=== PATIENT | male | born 1995 | race Caucasian/White ===

== ENCOUNTER 2018-07-26 19:36 | Observation (INO) ==
[2018-07-26 20:12] LABS: Baso % (Auto) 0.4 % (0.0-2.0); Eos # (Auto) 0.1 th/mm3 (0.0-0.4); Eos % (Auto) 0.7 % (0.0-4.0); Hematocrit 40.4 % (39.0-51.0); Hemoglobin 13.8 gm/dL (13.0-17.0); Lymph # (Auto) 2.3 th/mm3 (1.0-4.8); Lymph % (Auto) 28.4 % (9.0-44.0); Mean Corpuscular HGB Conc 34.1 % (32.0-36.0); Mean Corpuscular Hemoglobin 29.9 pg (27.0-34.0); Mean Corpuscular Volume 87.7 fL (80.0-100.0); Mono # (Auto) 0.7 th/mm3 (0.0-0.9); Mono % (Auto) 8.4 % (0.0-8.0); Neut % (Auto) 62.1 % (16.0-70.0); Platelet Count 206 th/mm3 (150-450); Red Cell Distribution Width 12.9 % (11.6-17.2)
--- NOTE | 2018-07-26 20:22 | XR ---
EXAM DATE: 07/26/2018 7:50 PM EDT AGE/SEX: 23 years / Male INDICATIONS: Patient states he passed out. Chest pain. CLINICAL DATA: This is the patient's initial encounter. Patient reports that signs and symptoms have been present for 1 day and indicates a pain score of 0/10. MEDICAL/SURGICAL HISTORY: None. None. COMPARISON: No prior exams available for comparison. FINDINGS: Single AP view of the chest. The lungs are clear. Cardiomediastinal silhouette within nor mal limits. No evidence of pleural effusion or pneumothorax. CONCLUSION: No acute cardiopulmonary disease identified. Electronically signed by: Jayce Burgess MD 07/26/2018 8:20 PM EDT
--- NOTE | 2018-07-26 20:25 | ED ---
HPI General Chief Complaint: Syncope Stated Complaint: Chest pain Time Seen by Provider: 07/26/18 19:49 History of Present Illness HPI narrative: Patient is a 23-year-old male who was standing waiting for his sister to finish a dance class with his mother they were going to go out to eat his father was waiting in the car apparently the patient said he suddenly realized he was lightheaded dizzy he thought he might pass out and the next thing he knew he was lying on the floor his mother was holding him but he had syncopized apparently paramedics found him lying on the floor his heart rate was mildly bradycardia at that time they tried to stand him up he suddenly became ashen pale heart rate dropped to 35 on their monitor and his blood pressure systolic was only 98 and again felt syncopized and he was laid back on the floor where his mentation and increased rapidly transferred by paramedics he arrives here his heart rate is 59 and the base EKG normal sinus rhythm and his blood pressure is 129 systolic at this time he has no past medical history no cardiac history no family of cardiac history he denies any drug intoxication that could affecting his cardiac conduction he is given 750 normal saline bolus in route by the paramedics and they gave him 0.5 mg of atropine did increase his heart rate from the 34-70 on arrival his heart rate is in the 60s he is symptom-free at this time mildly pale denies any trauma he ate this morning fingerstick en route was normal Related Data Home Medications Medication Instructions Recorded Confirmed No Known Home Medications 07/26/18 07/26/18 Allergies Allergy/AdvReac Type Severity Reaction Status Date / Time No Known Allergies Allergy Uncoded 02/28/15 16:02 Review of Systems ROS: all other systems reviewed are negative Cardiovascular Reports syncope, Reports irregular heart rhythm and Reports slow heart rate [facility] Medical History Medical History Patient denies medical problems (Acute) Surgical History Surgical History No history of previous surgery (Acute) Social History Social History Substance History: No History of Abuse Second Hand Smoke Exposure: No Smoking Status: Never smoker How Often Do You Have a Drink Containing Alcohol: Never Recent Travel in [facility] within the Last 8 Weeks: No Recent Out of Country Travel within the Last 8 Weeks: No Immunization History Tetanus Immunization: >5 Years Exam Narrative Exam Narrative: GENERAL: pale awake alert orthostatc vitals are normal SKIN: Warm and dry. HEAD: Atraumatic. Normocephalic. EYES: Pupils equal and round. No scleral icterus. No injection or drainage. ENT: No nasal bleeding or discharge. Mucous membranes pink and moist. NECK: Trachea midline. No JVD. CARDIOVASCULAR: Regular rate and rhythm. HR 59 on EKG RESPIRATORY: No accessory muscle use. Clear to auscultation. Breath sounds equal bilaterally. GASTROINTESTINAL: Abdomen soft, non-tender, nondistended. Hepatic and splenic margins not palpable. MUSCULOSKELETAL: Extremities without clubbing, cyanosis, or edema. No obvious deformities. NEUROLOGICAL: Awake and alert. No obvious cranial nerve deficits. Motor grossly within normal limits. Five out of 5 muscle strength in the arms and legs. Normal speech. PSYCHIATRIC: Appropriate mood and affect; insight and judgment normal. Course Initial Documented Vital Signs Temperature 98.6 F 07/26/18 19:41 Pulse Rate 55 L 07/26/18 19:41 Respiratory Rate 12 07/26/18 19:41 Blood Pressure 135/65 07/26/18 19:41 Pulse Oximetry 100 07/26/18 19:41 Last Documented Vital Signs Temperature 98.6 F 07/26/18 19:41 Pulse Rate 56 L 07/27/18 02:06 Respiratory Rate 13 07/27/18 02:06 Blood Pressure 119/67 07/27/18 02:06 Pulse Oximetry 100 07/27/18 02:06 Medical Decision Making [facility] Narrative Medical decision making narrative: She arrives after having received 750 cc of normal saline and atropine 0.5 mg in route by the time he arrived his heart rate is normal his blood pressure is normal his initial EKG is normal sinus at 59 bpm his systolic blood pressure is 120 he is observed in the ER and has calcium levels that are 8.0 the bottom of normal is 8.5 I give him PhosLo which is 6 6 7 mg of the calcium after about 10 minutes he vomited excessively after having taken that pill. He is given 2 L of fluid he is given Zofran however after short period of time he has another episode where he becomes bradycardic patient is given Reglan and another liter of fluid and he still is having episodes of vomiting another liter fluid and 0.5 mg Ativan is given he sleeps he wakes up he continues to vomit he will be admitted for further evaluation x- ray is done of his abdomen there is no signs of obstruction and all of his electrolytes except for the calcium are normal troponin x2 was normal he is admitted for syncope and bradycardia for further workup with cardiac consult in the a.m. Medical Screen Exam Complete: Yes Emergency Medical Condition: Yes Differential Diagnosis Differential Diagnosis: Differential diagnosis includes bradycardia due to vagal stimulation versus chemical intoxication with unknown substance versus sick sinus syndrome versus beta-westley like medication versus anxiety vasovagal causing the bradycardia hypotension Lab Data Result diagrams: 07/26/18 19:58 07/26/18 19:58 Lab Results 07/26/18 07/26/18 07/27/18 Range/Units 19:58 19:58 00:10 WBC 8.0 (4.0-11.0) th/mm3 RBC 4.60 (4.50-5.90) mil/mm3 Hgb 13.8 (13.0-17.0) gm/dL Hct 40.4 (39.0-51.0) % MCV 87.7 (80.0-100.0) fL MCH 29.9 (27.0-34.0) pg MCHC 34.1 (32.0-36.0) % RDW 12.9 (11.6-17.2) % Plt Count 206 (150-450) th/mm3 MPV 8.0 (7.0-11.0) fL Neut % (Auto) 62.1 (16.0-70.0) % Lymph % (Auto) 28.4 (9.0-44.0) % Carson % (Auto) 8.4 H (0.0-8.0) % Eos % (Auto) 0.7 (0.0-4.0) % Baso % (Auto) 0.4 (0.0-2.0) % Neut # (Auto) 5.0 (1.8-7.7) th/mm3 Lymph # (Auto) 2.3 (1.0-4.8) th/mm3 Carson # (Auto) 0.7 (0.0-0.9) th/mm3 Eos # (Auto) 0.1 (0.0-0.4) th/mm3 Baso # (Auto) 0.0 (0.0-0.2) th/mm3 WBC Differential . Differential Comment Auto diff final Sodium 142 (136-145) meq/L Potassium 3.8 (3.5-5.1) meq/L Chloride 109 H (98-107) meq/L Carbon Dioxide 28.3 (21.0-32.0) meq/L Anion Gap 5 (5-15) meq/L BUN 13 (7-18) mg/dL Creatinine 0.90 (0.60-1.30) mg/dL Estimated GFR Greater than 89 (>89) mL/min Random Glucose 90 (74-106) mg/dL Calcium 8.0 L (8.5-10.1) mg/dL Total Bilirubin 0.2 (0.2-1.0) mg/dL AST 16 (15-37) U/L ALT 25 (12-78) U/L Alkaline Phosphatase 64 (45-117) U/L Total Creatine Kinase 96 (39-308) U/L Troponin I Less than 0.02 L Less than 0.02 L (0.02-0.05) ng/mL Total Protein 7.1 (6.4-8.2) g/dL Albumin 3.7 (3.4-5.0) g/dL Imaging Data Radiologist's impression: Chest X-Ray 07/26/18 19:50 CONCLUSION: No acute cardiopulmonary disease identified. Abdomen X-Ray 07/27/18 00:50 CONCLUSION: Negative examination. Discharge Plan Discharge Disposition Patient Disposition: 30 Still Patient Discharge Details Diagnosis: Bradycardia, Syncope Physicians Team ED Provider: Fish Ferraro Primary Care Provider: UNKNOWN, Attending Provider: Melody Harrington Other Providers: Luis Juarez Status ED Status: Admitted Observation Patient
[2018-07-26 20:40] LABS: Albumin 3.7 g/dL (3.4-5.0); Anion Gap 5 meq/L (5-15); Aspartate Aminotransferase 16 U/L (15-37); Blood Urea Nitrogen 13 mg/dL (7-18); Carbon Dioxide 28.3 meq/L (21.0-32.0); Chloride 109 meq/L (98-107); Glomerular Filtration Rate Greater Than 89 mL/min (>89); Glucose,Random 90 mg/dL (74-106); Potassium 3.8 meq/L (3.5-5.1); Sodium 142 meq/L (136-145)
[2018-07-26 20:41] LABS: Alanine Aminotransferase 25 U/L (12-78)
[2018-07-26 20:45] LABS: Alkaline Phosphatase 64 U/L (45-117); Total Protein 7.1 g/dL (6.4-8.2)
[2018-07-26] MEDS ORDERED: Calcium Acetate 667 MG Capsule PO ONE (20:47)
[2018-07-26] MEDS ORDERED: Sod Chloride 0.9% Inj 1,000 ML IV.SIG ONE ×2 (20:48→23:05)
[2018-07-26 20:52] LABS: Creatine Kinase 96 U/L (39-308)
[2018-07-26] MEDS ORDERED: Ketorolac Inj 30 MG/ML (IVP) Vial IV.PUSH ONE (23:02)
[2018-07-26] MEDS ORDERED: Metoclopramide Inj 10 MG in Sodium Chlor 0.9% Inj 50 ML IV.SIG ONE (23:04)
--- NOTE | 2018-07-27 01:30 | XR ---
EXAM DATE: 07/27/2018 12:50 AM EDT AGE/SEX: 23 years / Male INDICATIONS: Vomiting after ingesting calcium pill in the emergency room today. CLINICAL DATA: This is the patient's subsequent encounter. Patient reports that signs and symptoms h ave been present for 1 day and indicates a pain score of 0/10. MEDICAL/SURGICAL HISTORY: None. None. COMPARISON: No prior exams available for comparison. FINDINGS: Supine and upright views of the abdomen were performed. The abdominal bowel gas pattern is normal. No air-fluid levels are seen. No abnormal masses, calcifications, or organomegaly is seen. The visualiz ed lower lungs are clear. No evidence of free intraperitoneal gas. The osseous structures are unremar kable. CONCLUSION: Negative examination. Electronically signed by: Merrick Meléndez MD 07/27/2018 1:29 AM EDT
[2018-07-27] MEDS ORDERED: Bisacodyl 10 MG Supp RECTAL PRN (02:06)
[2018-07-27] MEDS ORDERED: Acetaminophen 325 MG Tablet PO PRN (02:06)
[2018-07-27] MEDS ORDERED: Sod Chloride 0.9% Inj 1,000 ML IV.SIG ONE (02:08)
--- NOTE | 2018-07-27 02:26 | P.HPIM ---
History of Present Illness Primary Care Physician: UNKNOWN History of Present Illness: This is a 23-year-old male with no significant PMH who is brought to the ER by EMS after syncopal episode. Pt was apparently waiting outside his sister's dance class with his mother when he had acute onset of dizziness/ lightheadedness followed by syncopal event, pt's Mother was able to catch him and guide him to the floor, no head trauma reported. Upon EMS arrival, pt stood up and had recurrent syncopal event, HR noted to be in the 30's, s/p Atropine 0.5mg by EMS w/ improvement. Denies fever, chills, chest pain or sick contacts. No h/o bradycardia or syncope in the past. While in ER, pt given Ca PO replacement and has had intractable nausea/vomiting since w/ recurrent episode of bradycardia to 40's, now resolved. Pt is awake, alert and oriented. BP 135/65, HR 55, O2 sat 100% on RA, Afebrile. CBC unremarkable. Chemistry essentially unremarkable. Troponin negative x2. CXR and Abd-Xray w/ no acute findings. - Diagnosis (1) Syncope (2) Bradycardia (3) Intractable nausea and vomiting Review of Systems PAST FAMILY HISTORY: Reviewed. No h/o DM or CAD All other systems reviewed negative except as stated in HPI [facility] - History History Provided By: [employer] / EMT - Medical History Medical History: Medical History (Last Updated 07/26/18 @ 19:47 by Nilton Marie) Patient denies medical problems - Surgical History Surgical History: Surgical History (Last Updated 07/26/18 @ 19:47 by Nilton Marie) No history of previous surgery - Tobacco History Second Hand Smoke Exposure: No Smoking Status: Never smoker - Alcohol History How Often Do You Have a Drink Containing Alcohol: Never - Substance Use History Substance History: No History of Abuse - Travel History Recent Travel in the [place] Within the Last 8 Weeks: No Recent Travel Out of the Country Within the Last 8 Weeks: No - Immunization History Tetanus Immunization: >5 Years Medications and Allergies Active Medications: Active Medications Acetaminophen (Tylenol) 650 mg PO Q4H PRN PRN Reason: Temp > 100.4 Al Hydroxide/Mg Hydroxide (Milk Of Magnesia Liq) 30 ml PO Q12H PRN PRN Reason: Mild Constipation Bisacodyl (Dulcolax Supp) 10 mg RECTAL DAILY PRN PRN Reason: SEVERE CONSITIPATION Sodium Chloride (Ns Inj) 1,000 mls @ 100 mls/hr IV.CONT .Q10H JB Lactulose (Lactulose Liq) 30 ml PO DAILY PRN PRN Reason: SEVERE CONSITIPATION Ondansetron HCl (Zofran Inj) 4 mg IV.PUSH Q6H PRN PRN Reason: NAUSEA OR VOMITING Senna/Docusate Sodium (Vianey-Colace) 1 tab PO BID JB Sennosides (Senokot) 17.2 mg PO Q12H PRN PRN Reason: Moderate Constipation Sodium Chloride (Ns Flush) 2 ml IV.FLUSH UNSCH PRN PRN Reason: FLUSH AFTER USING IV ACCESS Allergies Allergy/AdvReac Type Severity Reaction Status Date / Time No Known Allergies Allergy Uncoded 02/28/15 16:02 Home Medications Medication Instructions Recorded Confirmed Type No Known Home Medications 07/26/18 07/26/18 History Exam Vital signs: Vital Signs 07/26/18 19:41 07/26/18 20:00 07/26/18 20:59 Temperature 98.6 F Pulse Rate 55 L 56 L Respiratory Rate 12 13 Blood Pressure 135/65 110/65 Pulse Oximetry 100 100 99 07/26/18 21:00 07/26/18 22:00 07/27/18 00:36 Temperature Pulse Rate 54 L 56 L Respiratory Rate 12 15 15 Blood Pressure 114/69 115/56 L Pulse Oximetry 100 100 07/27/18 02:06 Temperature Pulse Rate 56 L Respiratory Rate 13 Blood Pressure 119/67 Pulse Oximetry 100 Intake & Output 07/26/18 07/26/18 07/27/18 06:59 18:59 06:59 Intake Total 2051 Balance 2051 Weight 65.771 kg Intake: IV 2051 Reglan Inj 10 MG In NS Inj 50 52 / 52 ML @ 104 mls/hr IV.SIG ONCE ONE Rx#:[id number] NS Inj 1,000 ML @ Wide Open IV. 1999 SIG BOLUS ONE Rx#:[id number] Narrative: PE: GENERAL: Pleasant young white male in no acute distress. Mother at bedside. SKIN: Focused skin assessment warm and dry. HEENT: PERRLA, EOMI. No scleral icterus or conjunctival pallor. No lid lag or facial droop. CARDIOVASCULAR: Bradycardia, HR 50s. No obvious murmurs to auscultation. No chest tenderness to palpation. RESPIRATORY: No obvious rhonchi or wheezing. Clear to auscultation. Breath sounds equal bilaterally. GASTROINTESTINAL: Abdomen soft, non-tender, nondistended. BS normal. MUSCULOSKELETAL: Extremities without clubbing, cyanosis, or edema. No obvious deformities. NEUROLOGICAL: Awake, alert and oriented x4. No focal neurologic deficits. Moving both upper and lower extremities spontaneously. PSYCHIATRIC: Appropriate mood and affect. Insight and judgment normal. Results - Labs CBC & Chem 7: 07/26/18 19:58 07/26/18 19:58 Labs: Short CBC 07/26/18 Range/Units 19:58 WBC 8.0 (4.0-11.0) th/mm3 Hgb 13.8 (13.0-17.0) gm/dL Hct 40.4 (39.0-51.0) % Plt Count 206 (150-450) th/mm3 BMP 07/26/18 19:58 Sodium 142 Potassium 3.8 Chloride 109 H Carbon Dioxide 28.3 BUN 13 Creatinine 0.90 Calcium 8.0 L Cardiac Enzymes 07/26/18 07/27/18 Range/Units 19:58 00:10 Total Creatine Kinase 96 (39-308) U/L Troponin I Less than 0.02 L Less than 0.02 L (0.02-0.05) ng/mL Liver Function 07/26/18 Range/Units 19:58 Total Bilirubin 0.2 (0.2-1.0) mg/dL AST 16 (15-37) U/L ALT 25 (12-78) U/L Alkaline Phosphatase 64 (45-117) U/L Albumin 3.7 (3.4-5.0) g/dL - Imaging Impressions Chest X-Ray 07/26/18 19:50 CONCLUSION: No acute cardiopulmonary disease identified. Abdomen X-Ray 07/27/18 00:50 CONCLUSION: Negative examination. Caprini VTE Risk Assessment Caprini VTE Risk Assessment: No/Low Risk (score <= 1) Caprini Risk Assessment Model: Point Value = 1 Point Value = 2 Point Value = 3 Point Value = 5 Age 41-60 Minor surgery BMI > 25 kg/m2 Swollen legs Varicose veins or History of unexplained or recurrent spontaneous Oral contraceptives or hormone replacement Sepsis (< 1 month) Serious lung disease, including pneumonia (< 1 month) Abnormal pulmonary function Acute myocardial infarction Congestive heart failure (< 1 month) History of inflammatory bowel disease Medical patient at bed rest Age 61-74 Arthroscopic surgery Major open surgery (> 45 min) Laparoscopic surgery (> 45 min) Malignancy Confined to bed (> 72 hours) Immobilizing plaster cast Central venous access Age >= 75 History of VTE Family history of VTE Factor V Leiden Prothrombin [id number] Lupus anticoagulant Anticardiolipin antibodies Elevated serum homocysteine Heparin-induced thrombocytopenia Other congenital or acquired thrombophilia Stroke (< 1 month) Elective arthroplasty Hip, pelvis, or leg fracture Acute spinal cord injury (< 1 month) Prophylaxis Regimen: Total Risk Factor Score Risk Level Prophylaxis Regimen 0-1 Low Early ambulation 2 Moderate Order ONE of the following: *Sequential Compression Device (SCD) *Heparin 5000 units SQ BID 3-4 Higher Order ONE of the following medications: *Heparin 5000 units SQ TID *Enoxaparin/Lovenox 40 mg SQ daily (WT < 150 kg, CrCl > 30 mL/min) *Enoxaparin/Lovenox 30 mg SQ daily (WT < 150 kg, CrCl > 10-29 mL/min) *Enoxaparin/Lovenox 30 mg SQ BID (WT < 150 kg, CrCl > 30 mL/min) AND/OR *Sequential Compression Device (SCD) 5 or more Highest Order ONE of the following medications: *Heparin 5000 units SQ TID (Preferred with Epidurals) *Enoxaparin/Lovenox 40 mg SQ daily (WT < 150 kg, CrCl > 30 mL/min) *Enoxaparin/Lovenox 30 mg SQ daily (WT < 150 kg, CrCl > 10-29 mL/min) *Enoxaparin/Lovenox 30 mg SQ BID (WT < 150 kg, CrCl > 30 mL/min) AND *Sequential Compression Device (SCD) Assessment and Plan - Assessment (1) Syncope Code(s): R55 - Syncope and collapse Status: Acute (2) Bradycardia Code(s): R00.1 - Bradycardia, unspecified Status: Acute (3) Intractable nausea and vomiting Code(s): R11.2 - Nausea with vomiting, unspecified Status: Acute - Plan A/P: 1. Syncope: acute episode dizziness/lightheadedness followed by syncopal event x2, +bradycardia, no h/o similar symptoms. Admit for observation, telemetry, check Echo to eval for valvular abnormality/outlet obstruction. 2. Bradycardia: symptomatic. HR 30's per EMS, s/p Atropine 0.5mg w/ improvement, episode of bradycardia to 40's while in ER, now 50's. Telemetry, Check Echo as above, consult Cardiology for further eval/intervention. 3. Intractable NV: after receiving Ca PO in ER for replacement, continue antiemetics as needed, IVF for hydration. 4. DVT Prophylaxis: SCD/Teds 5. Social work for d/c planning as needed. 6. Case discussed w/ ER physician at length, labs/records/imaging reviewed by me.
[2018-07-27] MEDS: Sod Chloride 0.9% Inj 1,000 ML IV.CONT SCH ×2 (02:52→13:50)
[2018-07-27 06:45] LABS: Albumin 3.2 g/dL (3.4-5.0); Anion Gap 6 meq/L (5-15); Aspartate Aminotransferase 16 U/L (15-37); Blood Urea Nitrogen 12 mg/dL (7-18); Calcium 8.2 mg/dL (8.5-10.1); Carbon Dioxide 23.8 meq/L (21.0-32.0); Chloride 112 meq/L (98-107); Glomerular Filtration Rate Greater Than 89 mL/min (>89); Glucose,Random 103 mg/dL (74-106); Potassium 3.7 meq/L (3.5-5.1); Sodium 142 meq/L (136-145)
[2018-07-27 06:46] LABS: Alanine Aminotransferase 25 U/L (12-78)
[2018-07-27 06:50] LABS: Alkaline Phosphatase 60 U/L (45-117); Total Protein 6.2 g/dL (6.4-8.2)
[2018-07-27 07:59] LABS: Baso % (Auto) 0.1 % (0.0-2.0); Eos % (Auto) 0.1 % (0.0-4.0); Hematocrit 38.5 % (39.0-51.0); Hemoglobin 13.6 gm/dL (13.0-17.0); Lymph # (Auto) 0.3 th/mm3 (1.0-4.8); Lymph % (Auto) 2.7 % (9.0-44.0); Mean Corpuscular HGB Conc 35.3 % (32.0-36.0); Mean Corpuscular Hemoglobin 30.6 pg (27.0-34.0); Mean Corpuscular Volume 86.8 fL (80.0-100.0); Mean Platelet Volume 8.2 fL (7.0-11.0); Mono # (Auto) 0.4 th/mm3 (0.0-0.9); Mono % (Auto) 4.2 % (0.0-8.0); Neut # (Auto) 9.3 th/mm3 (1.8-7.7); Neut % (Auto) 92.9 % (16.0-70.0); Platelet Count 206 th/mm3 (150-450); Red Blood Count 4.44 mil/mm3 (4.50-5.90); Red Cell Distribution Width 13.1 % (11.6-17.2); White Blood Count 10.1 th/mm3 (4.0-11.0)
[2018-07-27] MEDS: Senna/Docusate Sodium 8.6/50 MG Tablet PO SCH ×2 (09:47→20:25)
--- NOTE | 2018-07-27 12:13 | P.PN ---
Subjective Interval history: Pt seen and examined for f/u of syncope and bradycardia. Patient's mother and girlfriend at the bedside. Patient is drowsy and sleeping throughout most of the encounter which he attributes to not getting a lot of rest yesterday. No further episodes of syncope since he has been in the hospital. Per patient's mother, he has always been healthy. He used to follow with Dr. Villarreal in the [facility] but hasn't been seen in several years. There is no recall of whether or not his resting heart rate is low. He is not particularly active or athletic but yesterday he did buy [employer] sneakers and started jogging/walking yesterday afternoon with his girlfriend. He states he rehydrated and ate afterwards and doesn't feel like he was dehydrated. He states he doesn't felt like he overexerted himself either. The syncopal episodes were reportedly at least 5 hours later. Echo hasn't been done yet and cardiology consult is pending. He denies any chest pain, palpitations, abdominal pain. He has had two episodes of vomiting since being in the hospital, last time was this morning. He states he feels lightheaded. His mother denies a family history of sudden cardiac or conduction disorders. Physical Exam Vital signs: Vital Signs 07/26/18 19:41 07/26/18 20:00 07/26/18 20:59 Temperature 98.6 F Pulse Rate 55 L 56 L Respiratory Rate 12 13 Blood Pressure 135/65 110/65 Pulse Oximetry 100 100 99 07/26/18 21:00 07/26/18 22:00 07/27/18 00:36 Temperature Pulse Rate 54 L 56 L Respiratory Rate 12 15 15 Blood Pressure 114/69 115/56 L Pulse Oximetry 100 100 07/27/18 02:06 07/27/18 05:58 07/27/18 07:20 Temperature Pulse Rate 56 L 62 Respiratory Rate 13 16 16 Blood Pressure 119/67 114/57 L Pulse Oximetry 100 96 07/27/18 07:21 07/27/18 08:00 Temperature 99.0 F Pulse Rate 73 Respiratory Rate 16 16 Blood Pressure 126/71 Pulse Oximetry 98 Intake & Output 07/26/18 07/27/18 07/27/18 18:59 06:59 18:59 Intake Total 3052 / 3052 Output Total 200 / 200 Balance 3051 -200 / -200 Weight 65.771 kg Intake: IV 3051 Reglan Inj 10 MG In NS Inj 50 52 / 52 ML @ 104 mls/hr IV.SIG ONCE ONE Rx#:[id number] NS Inj 1,000 ML @ Wide Open IV. 3000 / 3000 SIG BOLUS ONE Rx#:[id number] Output: Emesis 200 / 200 Other: Date of Last Bowel Movement 07/27/18 # Bowel Movements 1 # Emeses 1 Narrative: GENERAL: WN, WD male resting in bed in NAD. SKIN: Warm and dry. HEENT: AT/NC. Pupils equal and round. MMM. NECK: Supple no tender LAD or JVD. HEART: RRR no m/r/g. LUNGS: CTAB without wheezes or crackles. ABDOMEN: +BS, soft, NT, ND. EXTREMITIES: No LE edema. 2+ pedal pulses. NEURO: Drowsy but arousable. Results - Labs CBC & Chem 7: 07/27/18 05:30 07/27/18 06:10 Laboratory Results - last 24 hr 07/26/18 07/26/18 07/27/18 19:58 19:58 00:10 WBC 8.0 RBC 4.60 Hgb 13.8 Hct 40.4 MCV 87.7 MCH 29.9 MCHC 34.1 RDW 12.9 Plt Count 206 MPV 8.0 Neut % (Auto) 62.1 Lymph % (Auto) 28.4 Bell % (Auto) 8.4 H Eos % (Auto) 0.7 Baso % (Auto) 0.4 Neut # (Auto) 5.0 Lymph # (Auto) 2.3 Bell # (Auto) 0.7 Eos # (Auto) 0.1 Baso # (Auto) 0.0 WBC Differential . Differential Comment Auto diff final Sodium 142 Potassium 3.8 Chloride 109 H Carbon Dioxide 28.3 Anion Gap 5 BUN 13 Creatinine 0.90 Estimated GFR Greater than 89 Random Glucose 90 Calcium 8.0 L Total Bilirubin 0.2 AST 16 ALT 25 Alkaline Phosphatase 64 Total Creatine Kinase 96 Troponin I Less than 0.02 L Less than 0.02 L Total Protein 7.1 Albumin 3.7 07/27/18 07/27/18 05:30 06:10 WBC 10.1 RBC 4.44 L Hgb 13.6 Hct 38.5 L MCV 86.8 MCH 30.6 MCHC 35.3 RDW 13.1 Plt Count 206 MPV 8.2 Neut % (Auto) 92.9 H Lymph % (Auto) 2.7 L Bell % (Auto) 4.2 Eos % (Auto) 0.1 Baso % (Auto) 0.1 Neut # (Auto) 9.3 H Lymph # (Auto) 0.3 L Bell # (Auto) 0.4 Eos # (Auto) 0.0 Baso # (Auto) 0.0 WBC Differential . Differential Comment Auto diff final Sodium 142 Potassium 3.7 Chloride 112 H Carbon Dioxide 23.8 Anion Gap 6 BUN 12 Creatinine 0.81 Estimated GFR Greater than 89 Random Glucose 103 Calcium 8.2 L Total Bilirubin 0.5 AST 16 ALT 25 Alkaline Phosphatase 60 Total Creatine Kinase Troponin I Less than 0.02 L Total Protein 6.2 L D Albumin 3.2 L - Imaging Impressions Chest X-Ray 07/26/18 19:50 CONCLUSION: No acute cardiopulmonary disease identified. Abdomen X-Ray 07/27/18 00:50 CONCLUSION: Negative examination. Assessment and Plan - Assessment (1) Syncope Code(s): R55 - Syncope and collapse Status: Acute (2) Bradycardia Code(s): R00.1 - Bradycardia, unspecified Status: Acute (3) Intractable nausea and vomiting Code(s): R11.2 - Nausea with vomiting, unspecified Status: Acute - Plan 23 YOWM with no significant PMH admitted overnight for evaluation of syncope x 2. 1. Syncope - Exam seems consistent with orthostatic or vasovagal given prodrome and occurring when patient was either standing for some time or when he got up to stand - HR in the 30s per EMS requiring atropine - EKG showing possible RV conduction delay. QTc normal. No family history of conduction disorders - Orthostatics not yet documented but reported by nursing that HR went from 70s supine to 110s standing - 2D echo ordered - Continue IV fluids - Cardiology consulted 2. Bradycardia - HR improved, in the 70s during my exam - Possibly normal given his young age - Will see what cardiology says in the setting of syncope - Monitor on telemetry - Echo pending DVT prophylaxis: low risk and ambulatory
--- NOTE | 2018-07-27 16:00 | ECG ---
Date Performed: 07/26/2018 Time Performed: 19:44:16 PTAGE: 23 years EKG: SINUS BRADYCARDIA POSSIBLE RIGHT VENTRICULAR CONDUCTION DELAY BORDERLINE ECG NO PREVIOUS TRACING DOCTOR: Zain Bailey Interpretating Date/Time 07/27/2018 15:58:04
--- NOTE | 2018-07-27 16:00 | ECG ---
Date Performed: 07/27/2018 Time Performed: 06:04:45 PTAGE: 23 years EKG: Sinus rhythm RIGHT VENTRICULAR CONDUCTION DELAY ANTERIOR T WAVE CHANGE IN LEADS V1-V3, WHICH MAY BE NORMAL FOR AG E Compared to previous tracing, heart rate has increased from 47 to 70. T-wave change anteriorly slig htly more prominent, which may be heart rate related. Otherwise, no significant change. ABNORMAL ECG PREVIOUS TRACING : 07/27/2018 01.26 DOCTOR: Zain Bailey Interpretating Date/Time 07/27/2018 15:59:27
--- NOTE | 2018-07-27 16:00 | ECG ---
Date Performed: 07/27/2018 Time Performed: 01:26:41 PTAGE: 23 years EKG: SINUS BRADYCARDIA POSSIBLE RIGHT VENTRICULAR CONDUCTION DELAY BORDERLINE ECG Since PREVIOUS TRACING , no significant change noted PREVIOUS TRACIN07/26/2018 19.44 DOCTOR: Zain Bailey Interpretating Date/Time 07/27/2018 15:58:15
--- NOTE | 2018-07-27 20:02 | MB ---
cc: Luis Juarez DO DATE: 07/27/2018 REASON FOR CONSULTATION: Syncopal episode. HISTORY OF PRESENT ILLNESS: Manas Kim is a pleasant 23-year-old male who presented to [facility] Emergency Room after a syncopal episode. He had a normal day and had just recently bought running shoes and so he did a jog/walk with his girlfriend, which is the first time he had done anything like this in the recent past. Afterwards, he ate and drank and felt like he had resuscitated his fluids. He was waiting outside his sister's dance class with his mother when he had an acute onset of dizziness, lightheadedness and a feeling of blacking out. He blacked out and his mother was able to catch him and got him to the floor. Apparently, the mother and a person nearby who is a nurse said that by the time he was at the ground, he was already waking up and able to talk to them. There was no postictal phase. He denies chest pain, shortness of breath or palpitations before, during or after the event. Upon EMS arrival, the patient stood up and had a recurrent syncopal event. Heart rate was in 30s at the time and atropine was given. Heart rate has been mostly in the 50s to 60s, although he was given a calcium pill and afterwards had intractable nausea and vomiting, which led to bradycardia in the 40s. In seeing him, he is currently hemodynamically stable without chest pain or shortness of breath. PAST MEDICAL HISTORY: Denies. PAST SURGICAL HISTORY: Denies. ALLERGIES: NO KNOWN DRUG ALLERGIES. MEDICATIONS: Denies. FAMILY HISTORY: The family denies a history of syncope or sudden cardiac within the family. SOCIAL HISTORY: Denies tobacco, alcohol or drug abuse. REVIEW OF SYSTEMS: Fourteen systems were reviewed including osteopathic. Pertinent positives and negatives above, otherwise negative. PHYSICAL EXAMINATION: VITAL SIGNS: Temperature 98.8, heart rate 84, blood pressure 121/56, respirations 16, pulse oximetry 99% on room air. GENERAL: The patient appears well, in no acute distress, alert, awake and oriented x 3. HEENT: Extraocular muscles intact. Mucous membranes moist. NECK: Supple. No JVD at 45 degrees. No carotid bruits heard bilaterally. Carotid upstroke is brisk in nature. HEART: Regular rate and rhythm. Positive first and second heart sounds with no noted murmurs, gallops or rubs. LUNGS: Clear to auscultation bilaterally. No wheezes, rales or rhonchi. ABDOMEN: Soft, nontender, nondistended. No organomegaly noted. EXTREMITIES: Show no clubbing, cyanosis or edema. Femoral and distal pulses intact bilaterally. NEUROLOGIC: No focal deficits. SKIN: Warm, dry and intact. OSTEOPATHIC: No kyphoscoliosis, lordosis or paraspinal tender points. LABORATORY DATA: Hemoglobin 13.6, hematocrit 38.5, platelets 206. Potassium 3.7, BUN 12, creatinine 0.81. Troponin negative x 3. Electrocardiogram (07/27/2018 at 0604 hours), sinus rhythm, incomplete right bundle branch block, ST-T wave changes anteriorly, most likely due to right bundle branch pattern. IMPRESSION: 1. Syncopal episode. 2. Orthostatic hypotension. 3. Bradycardia post vasovagal from nausea and vomiting. RECOMMENDATIONS: 1. Mr. Kim presented after a syncopal episode. His original episode is possibly due to prolonged standing with blood pooling in his lower extremities as well as hypovolemia. Orthostatics have been done here and he did not have a drop in his blood pressure significantly, but heart rate increased from 77 to 114 upon standing. 2. We will continue to resuscitate him with fluids. 3. He also had bradycardia with intractable nausea and vomiting, which appears to be a vasovagal event. 4. We will check a 2-D echo to look at his overall left ventricular function, cardiac structure and possible valvulopathies. 5. He will be continued to be watched on telemetry. 6. I spoke to him and his family about him not driving for 6 months due to his syncopal episode and he understands. If after 6 months no further syncopal episodes, then consideration could be made for him for driving. 7. If he does have any further events, then I believe that he should undergo some type of rhythm analysis with possible loop recorder placement. 8. Further recommendations will be made based on the hospital course. Thank you for allowing me to see Manas Kim. If there are any questions, please do not hesitate to call. Luis Juarez DO VGP/jl , 05:07 PM , 05:18 PM
[2018-07-28] MEDS: Sod Chloride 0.9% Inj 1,000 ML IV.CONT SCH ×2 (02:00→10:49)
[2018-07-28 07:26] VITALS: RESP 16; TEMP 98.5; O2SAT 100
[2018-07-28] MEDS: Senna/Docusate Sodium 8.6/50 MG Tablet PO SCH (09:10)
--- NOTE | 2018-07-28 09:37 | P.DS ---
Date of admission: 07/27/18 02:09 Primary care physician: UNKNOWN Attending physician on discharge: Nissa Negron Anticipated date of discharge: 07/28/18 Brief History from admission: This is a 23-year-old male with no significant PMH who is brought to the ER by EMS after syncopal episode. Pt was apparently waiting outside his sister's dance class with his mother when he had acute onset of dizziness/ lightheadedness followed by syncopal event, pt's Mother was able to catch him and guide him to the floor, no head trauma reported. Upon EMS arrival, pt stood up and had recurrent syncopal event, HR noted to be in the 30's, s/p Atropine 0.5mg by EMS w/ improvement. Denies fever, chills, chest pain or sick contacts. No h/o bradycardia or syncope in the past. While in ER, pt given Ca PO replacement and has had intractable nausea/vomiting since w/ recurrent episode of bradycardia to 40's, now resolved. Pt is awake, alert and oriented. BP 135/65, HR 55, O2 sat 100% on RA, Afebrile. CBC unremarkable. Chemistry essentially unremarkable. Troponin negative x2. CXR and Abd-Xray w/ no acute findings. Patient update on day of discharge: Pt seen and examined following echocardiogram. He was told he had a bicuspid aortic valve. He denies any further syncopal events, nausea, vomiting, dizziness , lightheadedness, chest pain, or palpitations. He is ambulating without issues and states he feels back to his normal self. His mother is present at the bedside and all questions were answered to the best of my abilities. He underwent 2D echo this morning showing a bicuspid aortic valve. He has been cleared by cardiology. DS: Diagnosis - Discharge Diagnosis (1) Syncope Status: Acute (2) Bradycardia Status: Acute DS: Summary Hospital Course: 23 YOWM with no medical problems admitted on 07/27 for evaluation of two episodes of syncope. He was noted to be bradycardic by EVAC with HR in the 30s and was given atropine. Heart rate stabilized. Cardiology was consulted and patient was monitored under telemetry and underwent echocardiogram showing bicuspid aortic valve with EF 65-70%. His orthostatic vital signs showed a rise in HR from supine to standing around ~30 bpm. He was advised to stay adequately hydrated and was given precautions should he experience symptoms again. He was cleared by cardiology and discharged in stable condition on 07/28. - Time Spent with Patient Total time spent providing and/or coordinating discharge services: Less than 30 minutes - Quality: VTE Deep Vein Thrombosis/Pulmonary Embolism Present on Admission: No Exam Vital signs: Vital Signs 07/27/18 12:00 07/27/18 13:13 07/27/18 15:57 Temperature 98.8 F 99.6 F Pulse Rate 84 79 86 Respiratory Rate 16 16 Blood Pressure 121/56 L 117/62 Pulse Oximetry 99 97 07/27/18 20:00 07/28/18 00:00 07/28/18 04:00 Temperature 98.1 F 98.9 F 98.7 F Pulse Rate 71 68 68 Respiratory Rate 17 18 17 Blood Pressure 120/66 116/69 110/60 Pulse Oximetry 96 98 98 07/28/18 07:23 Temperature 98.5 F Pulse Rate 69 Respiratory Rate 16 Blood Pressure 131/67 Pulse Oximetry 100 Intake & Output 07/27/18 07/28/18 07/28/18 18:59 06:59 18:59 Intake Total 1000 / 1000 1000 / 1000 Output Total 400 / 400 460 / 460 Balance 600 / 600 540 / 540 Weight 65.834 kg Intake: IV 1000 / 1000 1000 / 1000 NS Inj 1,000 ML @ 100 mls/hr IV 1000 / 1000 1000 / 1000 .CONT .Q10H [facility] Rx#:[id number] Output: Urine 460 / 460 Emesis 400 / 400 Other: # Voids 5 Date of Last Bowel Movement 07/27/18 07/27/18 # Bowel Movements 1 # Emeses 1 Results Procedures completed during hospitalization: 2D echo: EF 65-70%, trace mitral valve regurgitation, bicuspid aortic valve, mild aortic valve regurg, trace tricuspid valve regurg - Impressions ITS Impressions Chest X-Ray 07/26/18 19:50 CONCLUSION: No acute cardiopulmonary disease identified. Abdomen X-Ray 07/27/18 00:50 CONCLUSION: Negative examination. Discharge Plan - Discharge Disposition Patient Disposition: Discharge Home - Discharge Condition Condition: Stable - Discharge Order Discharge Orders: Discharge Order (Routine); Ordered 07/28/18 Ordered By: Nissa Negron - Discharge Details Anticipated Discharge Date: 07/28/18 - Physicians Team Primary Care Provider: UNKNOWN, Attending Provider: Nissa Negron Other Providers: Luis Juarez,
[2018-07-28 12:28] VITALS: BP 134/74; PULSE 64
--- NOTE | 2018-07-28 13:15 | ECHRPT ---
Indication: SYNCOPE CONCLUSIONS The left ventricular systolic function is hyperdynamic with an estimated ejection fraction in the ra nge of 65- 70%. Normal left ventricular size. Wall thickness is normal. No regional wall motion abnormalities are present. Trace mitral valve regurgitation. Cannot rule out a bicuspid aortic valve or trileaflet valve with partially fused commissure. Mild aortic valve regurgitation. No aortic valve stenosis. There is trace tricuspid valve regurgitation. The pulmonary valve is not well visualized. BP: / HR: Rhythm: Sinus MEASUREMENTS (Male / Female) Normal Values Technical Quality:Good 2D ECHO LV Diastolic Diameter PLAX 4.6 cm 4.2 - 5.9 / 3.9 - 5.3 cm LV Systolic Diameter PLAX 3.2 cm IVS Diastolic Thickness 0.8 cm 0.6 - 1.0 / 0.6 - 0.9 cm LVPW Diastolic Thickness 0.8 cm 0.6 - 1.0 / 0.6 - 0.9 cm LV Relative Wall Thickness 0.4 RV Internal Dim ED PLAX 2.5 cm LVOT Diameter 2.2 cm LA Systolic Diameter LX 2.8 cm 3.0 - 4.0 / 2.7 - 3.8 cm LV Ejection Fraction MOD 4C 69.0 % LV Ejection Fraction 4C AL 69.5 % M-MODE Aortic Root Diameter MM 2.2 cm LA Systolic Diameter MM 3.0 cm LA Ao Ratio MM 1.4 AV Cusp Separation MM 2.3 cm DOPPLER AV Peak Velocity 126.0 cm/s AV Peak Gradient 6.4 mmHg AI Peak Velocity 482.0 cm/s AI Peak Gradient 92.9 mmHg AI Pressure Half Time 341.5 ms LVOT Peak Velocity 97.7 cm/s LVOT Peak Gradient 3.8 mmHg AV Area Cont Eq pk 2.9 cm MV Area PHT 3.7 cm Mitral E Point Velocity 107.5 cm/s Mitral A Point Velocity 56.3 cm/s Mitral E to A Ratio 1.9 LV E' Lateral Velocity 19.6 cm/s Mitral E to LV E' Lateral Ratio 5.5 LV E' Septal Velocity 11.3 cm/s Mitral E to LV E' Septal Ratio 9.5 FINDINGS LEFT VENTRICLE The left ventricular systolic function is hyperdynamic with an estimated ejection fraction in the ra nge of 65- 70%. Normal left ventricular size. Wall thickness is normal. No regional wall motion abnormalities are present. RIGHT VENTRICLE Normal right ventricular size and systolic function. LEFT ATRIUM The left atrial size is normal. RIGHT ATRIUM The right atrial size is normal. ATRIAL SEPTUM Normal atrial septal thickness without atrial level shunting by limited color doppler interrogation. AORTA The aortic root and proximal ascending aorta are normal in size on limited imaging. MITRAL VALVE Structurally normal mitral valve. Trace mitral valve regurgitation. AORTIC VALVE Aortic valve is not well visualized. Cannot rule out a bicuspid aortic valve or trileaflet valve wit h partially fused commissure. Mild aortic valve regurgitation. No aortic valve stenosis. TRICUSPID VALVE Structurally normal tricuspid valve. There is trace tricuspid valve regurgitation. PULMONARY VALVE The pulmonary valve is not well visualized. VESSELS The inferior vena cava is normal in size. PERICARDIUM No pericardial effusion. Victoriano Cervantes (Electronically Signed) Final Date:28 July 2018 13:14
--- NOTE | 2018-07-28 14:04 | P.PNCA ---
Subjective Interval history: No events overnight Feeling better walking around Medications and Allergies Active Medications: Active Medications Acetaminophen (Tylenol) 650 mg PO Q4H PRN PRN Reason: Temp > 100.4 Al Hydroxide/Mg Hydroxide (Milk Of Magnesia Liq) 30 ml PO Q12H PRN PRN Reason: Mild Constipation Bisacodyl (Dulcolax Supp) 10 mg RECTAL DAILY PRN PRN Reason: SEVERE CONSITIPATION Sodium Chloride (Ns Inj) 1,000 mls @ 100 mls/hr IV.CONT .Q10H [facility] Last Admin: 07/28/18 10:49 Dose: 100 mls/hr Lactulose (Lactulose Liq) 30 ml PO DAILY PRN PRN Reason: SEVERE CONSITIPATION Ondansetron HCl (Zofran Inj) 4 mg IV.PUSH Q6H PRN PRN Reason: NAUSEA OR VOMITING Last Admin: 07/27/18 13:50 Dose: 4 mg Senna/Docusate Sodium (Vianey-Colace) 1 tab PO BID [facility] Last Admin: 07/28/18 09:10 Dose: Not Given Sennosides (Senokot) 17.2 mg PO Q12H PRN PRN Reason: Moderate Constipation Sodium Chloride (Ns Flush) 2 ml IV.FLUSH UNSCH PRN PRN Reason: FLUSH AFTER USING IV ACCESS Allergies Allergy/AdvReac Type Severity Reaction Status Date / Time No Known Allergies Allergy Uncoded 02/28/15 16:02 Home Medications Medication Instructions Recorded Confirmed Type No Known Home Medications 07/26/18 07/26/18 History Physical Exam Vital signs: Vital Signs 07/27/18 15:57 07/27/18 20:00 07/28/18 00:00 Temperature 99.6 F 98.1 F 98.9 F Pulse Rate 86 71 68 Respiratory Rate 16 17 18 Blood Pressure 117/62 120/66 116/69 Pulse Oximetry 97 96 98 07/28/18 04:00 07/28/18 07:23 07/28/18 09:34 Temperature 98.7 F 98.5 F Pulse Rate 68 69 62 Respiratory Rate 17 16 Blood Pressure 110/60 131/67 Pulse Oximetry 98 100 07/28/18 12:00 Temperature Pulse Rate 64 Respiratory Rate 16 Blood Pressure 134/74 Pulse Oximetry 100 Intake & Output 07/27/18 07/28/18 07/28/18 18:59 06:59 18:59 Intake Total 1000 / 1000 1000 / 1000 1000 / 1000 Output Total 400 / 400 460 / 460 Balance 600 / 600 540 / 540 1000 / 1000 Weight 65.834 kg Intake: IV 1000 / 1000 1000 / 1000 1000 / 1000 NS Inj 1,000 ML @ 100 mls/hr IV 1000 / 1000 1000 / 1000 1000 / 1000 .CONT .Q10H [facility] Rx#:[id number] Output: Urine 460 / 460 Emesis 400 / 400 Other: # Voids 5 Date of Last Bowel Movement 07/27/18 07/27/18 07/28/18 # Bowel Movements 1 # Emeses 1 Narrative: GENERAL: WN, WD male resting in bed in NAD. SKIN: Warm and dry. HEENT: AT/NC. Pupils equal and round. MMM. NECK: Supple no tender LAD or JVD. HEART: RRR no m/r/g. LUNGS: CTAB without wheezes or crackles. ABDOMEN: +BS, soft, NT, ND. EXTREMITIES: No LE edema. 2+ pedal pulses. NEURO: Drowsy but arousable. Results 07/27/18 05:30 07/27/18 06:10 Cardiac Enzymes 07/26/18 07/27/18 07/27/18 Range/Units 19:58 00:10 06:10 AST 16 16 (15-37) U/L Troponin I Less than 0.02 L Less than 0.02 L Less than 0.02 L (0.02-0.05) ng/mL CBC 07/26/18 07/27/18 Range/Units 19:58 05:30 WBC 8.0 10.1 (4.0-11.0) th/mm3 RBC 4.60 4.44 L (4.50-5.90) mil/mm3 Hgb 13.8 13.6 (13.0-17.0) gm/dL Hct 40.4 38.5 L (39.0-51.0) % Plt Count 206 206 (150-450) th/mm3 Neut # (Auto) 5.0 9.3 H (1.8-7.7) th/mm3 Lymph # (Auto) 2.3 0.3 L (1.0-4.8) th/mm3 Barnes # (Auto) 0.7 0.4 (0.0-0.9) th/mm3 Eos # (Auto) 0.1 0.0 (0.0-0.4) th/mm3 Baso # (Auto) 0.0 0.0 (0.0-0.2) th/mm3 Comprehensive Metabolic Panel 07/26/18 07/27/18 Range/Units 19:58 06:10 Sodium 142 142 (136-145) meq/L Potassium 3.8 3.7 (3.5-5.1) meq/L Chloride 109 H 112 H (98-107) meq/L Carbon Dioxide 28.3 23.8 (21.0-32.0) meq/L BUN 13 12 (7-18) mg/dL Creatinine 0.90 0.81 (0.60-1.30) mg/dL Calcium 8.0 L 8.2 L (8.5-10.1) mg/dL AST 16 16 (15-37) U/L ALT 25 25 (12-78) U/L Alkaline Phosphatase 64 60 (45-117) U/L Total Protein 7.1 6.2 L D (6.4-8.2) g/dL Albumin 3.7 3.2 L (3.4-5.0) g/dL Intake and Output 07/27/18 07/28/18 07/28/18 22:59 06:59 14:59 Intake Total 1000 / 1000 1000 / 1000 Output Total 460 / 460 Balance 540 / 540 1000 / 1000 Intake: IV 1000 / 1000 1000 / 1000 NS Inj 1,000 ML @ 100 mls/hr IV 1000 / 1000 1000 / 1000 .CONT .Q10H [facility] Rx#:[id number] Output: Urine 460 / 460 Other: # Voids 5 Date of Last Bowel Movement 07/27/18 07/28/18 Weight 65.834 kg - Imaging and Cardiology Imaging: Impressions Chest X-Ray 07/26/18 19:50 CONCLUSION: No acute cardiopulmonary disease identified. Abdomen X-Ray 07/27/18 00:50 CONCLUSION: Negative examination. Assessment and Plan - Assessment (1) Bicuspid aortic valve Code(s): Q23.1 - Congenital insufficiency of aortic valve Status: Acute (2) Syncope Code(s): R55 - Syncope and collapse Status: Acute (3) Bradycardia Code(s): R00.1 - Bradycardia, unspecified Status: Acute - Plan 1) Syncopal episode Probable combination of blood pooling and hypovolemia Was orthostatic, received fluids and now no longer lightheaded with walking around 2) Bicuspid aortic valve Reviewed echo, appears bicuspid Discussed following up with me for yearly echos 3) Cardiovascularly stable for discharge
== END 2018-07-28 15:01 | disposition home or self-care (01) ==
LOC: NEDA 19:36 → NEPC 19:36 → NEPFCDU 07-27 07:27
PROVIDERS: ADMIT Family Medicine; ATTEND Family Medicine